=== PATIENT | female | born 1995 | race Caucasian/White ===

== ENCOUNTER 2018-02-19 14:36 | Emergency (ER) | payer BC ==
[~2018-02-19] VITALS: Ht 175.3 cm; Wt 125.0 kg
[2018-02-19 14:38] VITALS: BP 126/77
== END 2018-02-19 17:54 | disposition home or self-care (01) ==
LOC: ED 16:55
DX: G70.00 Myasthenia gravis without (acute) exacerbation (principal)
CPT/HCPCS: 99281